=== PATIENT | male | born 1980 | race Caucasian/White ===

== ENCOUNTER 2016-06-15 17:05 | Emergency (ER) | payer BC, OTHER ==
[~2016-06-15] VITALS: Ht 177.8 cm; Wt 96.7 kg
[2016-06-15 17:14] VITALS: TEMP 37.3; Ht 177.8 cm; Wt 96.7 kg
[2016-06-15] MEDS ORDERED: TRAZ50TA35 PO (17:54)
[2016-06-15] MEDS ORDERED: ESCI10TA17 PO (17:55)
--- NOTE | 2016-06-15 18:01 | DIAGNOSTIC IMAGING REPORT ---
LEFT WRIST W/NAVICULAR MIN 3 VIEWS CLINICAL HISTORY: Left wrist pain COMPARISON: None. DISCUSSION: There is a corticated ossicle adjacent to the ulnar styloid. This is felt to be old. There is equivocal old distal radial fracture. No acute fractures are visualized. There are no subluxations. IMPRESSION: Old posttraumatic changes. No acute fractures identified. No erosive or destructive changes. Electronically signed by: Nixon Winter M.D. 06/15/2016 6:00 PM Dictated Date/Time: 06/15/2016 5:58 PM
--- NOTE | 2016-06-15 18:27 | EMERGENCY ROOM VISIT NOTE ---
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 The patient denies any known injury to the wrist. He does report fracturing the wrist in 1999. His fracture was treated with a cast. The patient reports that he was also diagnosed with degenerative osteoarthritis and [facility]. He currently denies any paresthesias or numbness of the hand or fingers. He denies any pain extending into the forearm , elbow, shoulder or neck. The patient is [id number], and rates his discomfort a 1 out of 10. Review of Systems 10 system review was performed and was negative except for pertinent positives and negatives as indicated in history of present illness Past Medical/Surgical History Medical Problems: (1) Dyslipidemia Surgical Problems: (1) H/O shoulder surgery Family History FH: heart disease FH: hypertension Social History Smoking Status: Never Smoker Alcohol Use: occasionally Marital Status: Housing Status: lives with family Occupation Status: employed Current/Historical Medications Scheduled Escitalopram (Lexapro), 10 MG PO DAILY Trazodone Hcl (Trazodone), 50 MG PO HS Allergies Coded Allergies: No Known Allergies (Verified , NONE, 12/07/13) Physical Exam Vital Signs Date Time Temp Pulse Resp B/P Pulse Ox O2 Delivery O2 Flow Rate FiO2 06/15/16 17:14 37.3 91 18 117/71 96 Room Air Physical Exam CONSTITUTIONAL: Healthy and well nourished. Alert and oriented X 3 with positive affect. Patient does not appear in any acute distress. HEENT: Normocephalic, atraumatic. Pupils equal, round and reactive. NECK: Full active range of motion without discomfort. MUSCULOSKELETAL: Examination of the left wrist region does not show any soft tissue edema, ecchymosis or erythema. He has mild tenderness over the dorsum of the wrist. Negative anatomic snuffbox tenderness. No worsening pain with flexion or extension of the fingers. Capillary refill is less than 2 seconds. INTEGUMENTARY: No rash or other significant dermatologic conditions noted. NEUROLOGIC: Left hand median, radial and ulnar motor and sensory are intact. Medical Decision & Procedures ER Provider Diagnostic Interpretation: My interpretation of left wrist x-rays does not show any acute fractures, dislocations or bony lesions. Radiologist report is as follows: LEFT WRIST W/NAVICULAR MIN 3 VIEWS CLINICAL HISTORY: Left wrist pain COMPARISON: None. DISCUSSION: There is a corticated ossicle adjacent to the ulnar styloid. This is felt to be old. There is equivocal old distal radial fracture. No acute fractures are visualized. There are no subluxations. IMPRESSION: Old posttraumatic changes. No acute fractures identified. No erosive or destructive changes. ED Course Patient history and physical exam were performed. Nurse's notes were reviewed. The patient refused any analgesics while in the emergency department. X-rays of the left wrist were normal. The patient was advised that this is likely a soft tissue injury in the wrist, possibly a strain versus sprain. A wrist brace was applied. The patient was encouraged to intermittently apply ice to the wrist. He was instructed to wear the brace when active, otherwise performed gentle range of motion exercises. If his pain has not improved within the next week, he was encouraged to follow-up with orthopedics for further reevaluation and management. The patient was happy with plan of care, voiced understanding of all discharge instructions, and denied any significant pain at the time of discharge. Medical Decision Impression Primary Impression: Left wrist sprain Departure Information Referrals No Doctor, Assigned (PCP) Patient Instructions [facility] Problem Qualifiers Primary Impression: Left wrist sprain Encounter type: initial encounter Qualified Codes: S63.502A - Unspecified sprain of left wrist, initial encounter
[2016-06-15 18:34] VITALS: BP 121/78; PULSE 78; O2SAT 98
== END 2016-06-15 18:36 | disposition home or self-care (01) ==
LOC: C.EDB 17:06 → C.EDD 18:36
DX: S63.502A Unspecified sprain of left wrist, initial encounter (principal); X58.XXXA Exposure to other specified factors, initial encounter; E78.5 Hyperlipidemia, unspecified; Z82.49 Family history of ischemic heart disease and other diseases of the circulatory system; Z79.899 Other long term (current) drug therapy